=== PATIENT | male | born 2000 | race Two or more races ===

== ENCOUNTER 2020-08-17 14:18 | Emergency (ER) | payer SELFPAY ==
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
[2020-08-17] MEDS ORDERED: Sodium Chloride 0.9% 1,000 ML IV SCH (14:30)
[2020-08-17] MEDS ORDERED: Dextrose 5%-0.9% NaCl 1,000 ML IV SCH (14:30)
--- NOTE | 2020-08-17 15:20 | CR ---
Chest: Portable view of the chest was obtained. Comparison: No previous chest imaging is available. Heart size and mediastinum are normal. Lungs are clear with no acute parenchymal change. Slight scoliosis is noted within the spine. No acute osseous abnormality is otherwise seen. Impression: 1. Nothing acute seen on portable chest x-ray. Diagnostic code #2
== END 2020-08-17 18:40 | disposition home or self-care (01) ==
LOC: JD.ED 14:18
DX: T75.1XXA Unspecified effects of drowning and nonfatal submersion, initial encounter (principal)
CPT/HCPCS: 36415; 36600; 71045; 80053; 80306; 80307; 82550; 82803; 82947; 83605; 83735; 85025; 93005; 99284; J7030; 93010

== ENCOUNTER 2023-01-30 13:58 | Emergency (ER) | payer SELFPAY | END 2023-01-30 16:16 | disposition home or self-care (01) | LOC: JD.ED 13:58 → EDBD 13:58 → JD.ED 16:16 | DX: S62.314A Displaced fracture of base of fourth metacarpal bone, right hand, initial encounter for closed fracture (principal); S62.316A Displaced fracture of base of fifth metacarpal bone, right hand, initial encounter for closed fracture; W22.01XA Walked into wall, initial encounter | CPT/HCPCS: 29125; 73130-26-RT; 73130-RT; 99283 ==

== ENCOUNTER 2023-02-05 10:39 | Day surgery (SDC) | payer SELFPAY ==
[~2023-02-05 10:39] MED LIST: Lactated Ringers 1,000 ML IV SCH; Sodium Chloride 0.9% 10 ML Syringe FLUSH PRN; Sodium Chloride 0.9% 10 ML Syringe FLUSH SCH
[2023-02-05] MEDS ORDERED: fentaNYL 250 MCG/5 ML SDV ONE (11:00)
[2023-02-05] MEDS ORDERED: Midazolam 1 MG/ML 2 ML SDV ONE (11:00)
[2023-02-05] MEDS ORDERED: Lidocaine 1% 5 ML VIAL ONE (11:00)
[2023-02-05] MEDS ORDERED: Ondansetron 4 MG/2 ML SDV ONE (11:00)
[2023-02-05] MEDS ORDERED: Propofol 200 MG/20 ML SDV ONE (11:01)
[2023-02-05] MEDS ORDERED: Bupivacaine 0.25% 10 ML SDV ONE (11:01)
[2023-02-05] MEDS ORDERED: Lidocaine 1% 30 ML SDV ONE (11:02)
[2023-02-05] MEDS ORDERED: Bupivacaine 0.5% 30 ML SDV ONE (11:02)
[2023-02-05] MEDS ORDERED: ceFAZolin 2 GM Vial ONE (11:04)
[2023-02-05] MEDS ORDERED: HYDROmorphone 0.5 MG/0.5 ML Syringe ONE (11:05)
[2023-02-05] MEDS ORDERED: Dexamethasone 4 MG/ML 5 ML MDV ONE (11:38)
[2023-02-05] MEDS ORDERED: Ketorolac 30 MG/ML SDV ONE (11:42)
[2023-02-05] MEDS ORDERED: Ketamine 200 MG/20 ML MDV ONE (11:46)
[2023-02-05] MEDS ORDERED: fentaNYL 100 MCG/2 ML SDV IVPUSH PRN (11:50)
[2023-02-05] MEDS ORDERED: Ondansetron 4 MG/2 ML SDV IVPUSH PRN (11:50)
[2023-02-05] MEDS ORDERED: HYDROmorphone 0.5 MG/0.5 ML Syringe IVPUSH PRN (11:50)
[2023-02-05] MEDS ORDERED: Lactated Ringers 1,000 ML ONE (12:07)
[2023-02-05] MEDS ORDERED: Naloxone 0.4 MG/ML SDV ONE (12:19)
[2023-02-05] MEDS ORDERED: traMADol 50 MG Tab PO SCH (14:54)
== END 2023-02-05 15:05 | disposition home or self-care (01) ==
LOC: JD.SDS 10:39
PROVIDERS: ATTEND Orthopaedic Surgery
DX: S62.304A Unspecified fracture of fourth metacarpal bone, right hand, initial encounter for closed fracture (principal); S62.306A Unspecified fracture of fifth metacarpal bone, right hand, initial encounter for closed fracture; D64.9 Anemia, unspecified; F17.210 Nicotine dependence, cigarettes, uncomplicated; Z88.5 Allergy status to narcotic agent
CPT/HCPCS: 26608; 76000; A9270; J0690; J1100; J1170; J1885; J2250; J2310; J2405; J2704; J3010; J3490; J7120; 01820

== ENCOUNTER 2024-04-22 02:16 | Emergency (ER) | payer SELFPAY ==
[2024-04-22] MEDS ORDERED: Naloxone 0.4 MG/ML SDV IVPUSH PRN (02:33)
[2024-04-22] MEDS: HYDROmorphone 1 MG/ML Syringe IM ONE (02:43)
[2024-04-22] MEDS: Ketorolac 60 MG/2 ML SDV IM ONE (02:48)
== END 2024-04-22 04:55 | disposition home or self-care (01) ==
LOC: JD.ED 02:16
DX: S93.602A Unspecified sprain of left foot, initial encounter (principal); Z88.8 Allergy status to other drugs, medicaments and biological substances; X50.0XXA Overexertion from strenuous movement or load, initial encounter; Y93.89 Activity, other specified
CPT/HCPCS: 73610; 73700; 96372; 99283; J1171; J1885